=== PATIENT | female | born 1965 | race Caucasian/White ===

== ENCOUNTER → 2024-01-16 11:28 | Outpatient (REF) | payer OTHER, SELFPAY | LOC: MRI 3T 11:28 | PROVIDERS: ATTENDING PHYSICIAN Family Medicine | DX: I67.1 Cerebral aneurysm, nonruptured (principal) | CPT/HCPCS: 70544 ==

== ENCOUNTER → 2024-01-31 09:01 | Outpatient (REF) | payer OTHER, SELFPAY | LOC: HWRAD 09:01 | PROVIDERS: ATTENDING PHYSICIAN Family Medicine | DX: E04.1 Nontoxic single thyroid nodule (principal) | CPT/HCPCS: 76536 ==

== ENCOUNTER 2024-04-08 21:17 | Emergency (ER) | payer OTHER, SELFPAY ==
[2024-04-08 21:19] VITALS: BP 130/80
--- NOTE | 2024-04-08 21:40 | ED.MUSCINJ ---
HPI-Injury
General
Chief Complaint: Musculo-Skeletal Complaint
Source: patient
Exam Limitations: none
Time Seen by Provider: 04/08/24 21:35
History of Present Illness-Injury
Initial Injury comments:
58-year-old [id number] female presents with right small finger pain after slipping and falling. She states that her finger is crooked. No other complaints
Past History
Past History
ED Past Medical History: None
ED Past Surgical History: None
Social History
Tobacco: Non-smoker
Alcohol: None
Drug: None
Phy Exam
Physical Exam
Physical Exam:
General: Well-appearing female no acute distress
Musculoskeletal exam: Right small finger tender over the PIP joint with deformity. Skin is intact good sensation
Injury Course
Orders/Labs/Results
Orders:
Orders
04/08/24 21:21
Finger(s)/Thumb 2 View Rt [CR Finger(s)/thumb Min 2 Vw Rt] Urgent
Comment:
Reason For Exam: pain
Indicate Which Finger:: Little Finger
MDM/Problems Addressed
Differential Diagnosis Includes:
Right ring finger pain and deformity after slip and fall. Question fracture versus dislocation versus both
Personally visualized x-rays of the small finger which demonstrate a posterior dislocation of the PIP joint. There is a small avulsion fracture noted off the anterior aspect of likely the middle phalanx proximally.
The finger was easily reduced with longitudinal traction and dorsal pressure. Patient no longer had deformity she is able to make a full fist. A splint was applied. She is stable for discharge with follow-up
*Critical Care Note
Total Time (30-74mins, 75-104mins- exclusive of procedures): Not Applicable
ED Attending Note
-
Portions of this chart may have been created with voice recognition software.� Occasional wrong word or��sound alike� substitutions may have occurred due to the inherent limitations of voice recognition software.
Discharge Plan
Departure
Patient Disposition: Home (Routine Discharge)
Date of Disposition: 04/08/24
Time of Disposition: 21:42
Patient with high blood pressure during this ER visit?: No
Discharge Problem:
Dislocated finger
Instructions: Muscle and Bone Pain (DC)
Referrals:
Abdirahman Plasencia MD [Active] -
Activity Restrictions/Additional Instructions:
As discussed, you dislocated your finger and there is a small chip of bone off of the front of your finger. Use a splint for support. Follow-up with orthopedic. You may have some swelling and stiffness. You may use ibuprofen or Tylenol for pain
Interventions
Interventions:
*Risk Screen - Suicide Last Done: 04/08/24 21:19
*General Assessment Last Done: 04/08/24 21:19
*ED COVID-19 Vaccine History Last Done: 04/08/24 21:19
Discharge Date and Time
Print Language: PERSIAN
== END 2024-04-08 22:02 | disposition home or self-care (01) ==
LOC: EMR 21:17
PROVIDERS: EMERGENCY PHYSICIAN Emergency Medicine; FAMILY PHYSICIAN Family Medicine
DX: S63.284A Dislocation of proximal interphalangeal joint of right ring finger, initial encounter (principal); W01.0XXA Fall on same level from slipping, tripping and stumbling without subsequent striking against object, initial encounter
CPT/HCPCS: 26770; 99283; 73140

== ENCOUNTER → 2024-08-03 15:25 | Outpatient (REF) | payer OTHER, SELFPAY | LOC: HWWDC 15:25 | PROVIDERS: ATTENDING PHYSICIAN Family Medicine | DX: Z12.31 Encounter for screening mammogram for malignant neoplasm of breast (principal) | CPT/HCPCS: 77063; 77067 ==

== ENCOUNTER 2025-02-07 06:20 | Day surgery (SDC) | payer OTHER, SELFPAY | END 2025-02-07 08:37 | disposition home or self-care (01) | LOC: GI 06:20 | PROVIDERS: ATTENDING PHYSICIAN Internal Medicine Gastroenterology | DX: Z12.11 Encounter for screening for malignant neoplasm of colon (principal); D12.3 Benign neoplasm of transverse colon; D12.5 Benign neoplasm of sigmoid colon; K57.30 Diverticulosis of large intestine without perforation or abscess without bleeding; K64.9 Unspecified hemorrhoids | CPT/HCPCS: 45385; 45380; 88305 ==